=== PATIENT | female | born 1970 | race Hispanic/Latino ===

== ENCOUNTER 2016-12-13 13:40 | Emergency (ER) | payer OTHER ==
[~2016-12-13] VITALS: Ht 154.9 cm; Wt 81.8 kg
[~2016-12-13 13:40] MED LIST: ACET325T51 PO; ALBU8.5H2 INHALATION; CELE200C PO; CETI10CA PO; CIPR-198 PO; CITA20TA11 PO; FLUT12AE8 IH; GABA-502 PO; MONT10TA20 PO; PANT20T PO; SUCR1ORA2 PO
[2016-12-13 13:48] VITALS: BP 131/84; PULSE 70; RESP 16; O2SAT 97
--- NOTE | 2016-12-13 14:07 | ED.REPORT ---
HPI-Chest Pain 40 and Over Date of Service Dec 13, 2016 ED Provider: Reynaldo Berger MD Pt is a 46 y/o female w/ a hx of PFO, HTN, presenting to the ED by recommendation of her locate technician c/o intermittent CP onset today. This morning , the patient experienced an episode of intense chest pain lasting 2 minutes. Later at 10:45 she experienced another episode of chest pain lasting less than 2 minutes which was minimal in severity. Her pain is non-radiating. Pt denies any other symptoms or hx of DVT, PE, estrogen therapy, recent surgery, hemoptysis, lower extremity edema or pain. She went to her locate technician's office (Dr. Bautista) today to discuss her chest pain and was recommended to come to the ED. [employer] Line Core Feeder: Michele Nursing Notes Stated Complaint: CHEST PRESSURE,FROM URGENT CARE Chief Complaint: Chest Pain Nursing Notes Reviewed: Yes Allergies: Coded Allergies: hydrocodone (Verified Allergy, Severe, N/V, 12/13/16) hydrocortisone (Verified Allergy, Severe, HEART RACE, 12/13/16) metoprolol (Unverified Adverse Reaction, Severe, altered heart rate, ) oxycodone (Unverified Adverse Reaction, Severe, dyspnea, 12/13/16) Uncoded Allergies: horacio (Allergy, Unknown, unknown, 05/22/15) Scheduled Albuterol HFA (Proair HFA) 8.5 Gm Hfa.aer.ad 2 PUFFS INHALATION Q4H Celecoxib (Celebrex) 200 Mg Capsule 200 MG PO BID Cetirizine HCl (Zyrtec) 10 Mg Capsule 10 MG PO HS Ciprofloxacin (Ciprofloxacin) 500 Mg Tablet 500 MG PO BID Citalopram (Citalopram) 20 Mg Tablet 20 MG PO DAILY Fluticasone Propionate (Flovent HFA 110 mcg) 12 Gm Aer.w.adap 2 PUFFS IH BID Gabapentin (Gabapentin) 300 Mg Capsule 300 MG PO HS Montelukast (Singulair) 10 Mg Tablet 10 MG PO HS Pantoprazole DR (Protonix) 20 Mg Tablet 20 MG PO BID Sucralfate Susp (Carafate Susp) 1 Gm/10 Ml Oral.susp 1 GM PO QID Scheduled PRN Acetaminophen (Acetaminophen) 325 Mg Tablet 325 MG PO Q4H PRN PRN For Pain General Time Seen by MD: 14:50 Chief Complaint Chest pain Hx Obtained From: Patient Arrived By: Walk-in Sudden in Onset?: Yes Onset Occurred: 1 - 4 hours ago Symptom Duration: Intermittent Location: : Substernal Quality: Painful Severity: Current: No pain currently Severity: Maximum: Moderate Risk Factors PERC Rule PERC Result: PERC rule satisfied Past Medical History Past Medical History PFO (patent foramen ovale) Asthma Depression Hypothyroid Hx of migraines Hypertension GERD Anxiety Past Surgical History Reports: Hysterectomy Smoking History Never Smoker Social History Alcohol Use: Denies alcohol use Drug Use: Denies drug use Other Social History: Good social support, Ambulatory Status Independent Review of Systems Constitutional: Denies: Chills, Fever Respiratory: Denies: Non-productive cough, Shortness of breath Cardiovascular: Reports: Chest pain GI: Denies: Abdominal pain, Nausea, Vomiting Neurologic: Denies: Syncope Complete sys rev & neg: except as marked. Physical Exam Initial Vital Signs Vital Signs (First) Date Time Temp Pulse Resp B/P Pulse Ox O2 Delivery O2 Flow Rate FiO2 12/13/16 13:48 36.9 70 16 131/84 97 Room Air Initial VS: Reviewed, Vital signs normal Head / Eyes: Atraumatic, Normocephalic ENT: Mucous membranes moist Neck: Supple, Non-tender, Full range of motion Extremities: Vascular intact, Neuro intact, No swelling, No tenderness Skin: Warm, Dry, No cyanosis Neurologic: Alert, Oriented, Nonfocal Psychiatric: Mood/affect normal, Behavior normal, Normal thought content General/Constitutional: Awake, Alert, No acute distress, Well appearing, Cooperative, Not toxic appearing Appearance / Presentation: Positive: Obese Respiratory / Chest: Breath sounds NL, Breath sounds = bilat, No respiratory distress, No rales, No rhonchi, No wheezing, No stridor Cardiovascular: Heart rate NL, Regular rhythm, Heart sounds NL, No murmurs Abdomen: Atraumatic, Soft, Non-tender, No guarding, No rebound Interpretation & Diagnostics Lab Results Interpretation Result Diagram: 12/13/16 1448 12/13/16 1448 Test 12/13/16 14:48 White Blood Count 9.3th/mm3 (3.8-10.1) Red Blood Count 4.96mil/mm3 (3.90-5.20) Hemoglobin 14.8g/dL (12.0-15.6) Hematocrit 43.4% (35.0-46.0) Mean Corpuscular Volume 87.5fL (81-100) Mean Corpuscular Hemoglobin 29.8pg (27.0-35.0) Mean Corpuscular Hemoglobin Concent 34.1% (32.0-37.0) Red Cell Distribution Width 12.4% (12.3-15.4) Platelet Count 351bil/L (150-400) Neutrophils (%) (Auto) 61.8% (40-74) Lymphocytes (%) (Auto) 27.3% (14-46) Monocytes (%) (Auto) 8.9% (4-12) Eosinophils (%) (Auto) 1.2% (0-5) Basophils (%) (Auto) 0.5% (0-3) Sodium Level 137mEq/L (134-144) Potassium Level 4.0mEq/L (3.5-5.2) Chloride Level 100mEq/L (97-108) Carbon Dioxide Level 23mmol/L (18-29) Blood Urea Nitrogen 10mg/dL (6-24) Creatinine 0.49mg/dL (0.57-1.00) Estimat Glomerular Filtration Rate 194mL/min (>59) Glucose Level 102mg/dL (60-99) Calcium Level 9.2mg/dL (8.5-10.1) Magnesium Level 2.1mg/dL (1.6-2.6) Total Bilirubin 0.2mg/dL (0.0-1.2) Aspartate Amino Transf (AST/SGOT) 16U/L (0-50) Alanine Aminotransferase (ALT/SGPT) 15U/L (0-32) Alkaline Phosphatase 91U/L (25-150) Troponin T < 0.010ug/L (0.0-0.011) Total Protein 7.6g/dL (6.4-8.4) Albumin 4.3g/dL (3.4-5.0) ECG Interpretation Time: 15:08 Interpreted by: ED physician Normal ECG Interpretation: Normal ECG w/ rate of... (63), Normal rate, Normal sinus rhythm, No acute ischemic changes, Normal QRS, Normal axis, Normal intervals, Adequate tracing X-Ray Chest Interpretation Chest Xray Interpretation: IMPRESSION: 1. No acute cardiopulmonary disease. Dictated by: Rickey Rob M.D. on 12/13/2016 at 14:31 Approved by: Rickey Rob M.D. on 12/13/2016 at 14:33 View: Portable, AP & lat Interpretation / Wet Read by: Interpret - Radiologist Re-Eval/Medical Decision Med Decision/Clinical Course Overall low risk for acute coronary syndrome, for PE. Will be discharged. Return and follow-up precautions given Time of Eval: 16:55 Re-Evaluation/Progress Note: Pt rechecked. Informed pt of plan for discharge. Pt understands and agrees with plan for discharge. F/U instructions and RTER warnings given. All questions addressed. Consultation : Referral / Consult Name: Ilda Saucedo MD Consulted With: Cardiology Call Returned at: 16:54 Apartment Leasing Manager: Agrees with eval, Agrees with plan Note: Interprets echo over phone as: LV function normal No wall motion abnormality LV EF 55-60% No effusion Agrees with plan for outpatient f/u. Counseled Regarding: Diagnosis, Lab results, Need for follow-up, When/why to return to ED Discharge & Departure Primary Impression: Chest pain Chest pain type: unspecified Qualified Code: R07.9 - Chest pain, unspecified Disposition: Home Discharge Condition All VS Reviewed: Yes Condition: Stable Patient Instructions: Chest Pain (ED) Additional Instructions: The cause of your chest pain is uncertain but is not immanently dangerous. Echocardiogram (ultrasound of the heart), EKG, chest x-ray, and labs (including markers for heart damage) were all reassuring. Take Tylenol as needed for pain. You can take 650 mg 4x per day. Take Aspirin daily. Call Dr. Bautista tomorrow morning to schedule a follow-up appointment. A stress test may be considered at that time. Return to the emergency department for persistent or increased chest pain, shortness of breath, persistent vomiting, fever, or for other concerning symptoms. Referrals: OTHER,PHYSICIAN (PCP) Rodriguez Bautista MD Scribe Attestation Portions of this note were transcribed by Onesimo Streeter. I, Dr. Berger, personally performed the history, physical exam and medical decision-making; I reviewed and confirmed the accuracy of the information in the transcribed note. copies to: Rodriguez Bautista MD, Timothy S DO Dec 13, 2016 14:07 Philly Delarosa Dec 13, 2016 14:[address] Dec 13, 2016 14:56
--- NOTE | 2016-12-13 14:35 | DRSVH ---
PROCEDURE: X-RAY CHEST, TWO VIEWS ([id number]) INDICATIONS: CHEST PAIN TECHNIQUE: 2 views of the chest were acquired. COMPARISON: [facility], , CHEST 1VW (PORTABLE), 08/27/2010, 15:17. FINDINGS: Surgical changes and devices: None. Lungs and pleura: No pleural effusions or pneumothorax. Lungs are clear. Mediastinum: Mediastinal contours are normal. Heart size is normal. Bones and chest wall: No suspicious bony abnormalities. Soft tissues appear unremarkable. IMPRESSION: 1. No acute cardiopulmonary disease. Dictated by: Rickey Rob M.D. on 12/13/2016 at 14:31 Approved by: Rickey Rob M.D. on 12/13/2016 at 14:33
[2016-12-13 14:51] VITALS: BP 118/65; PULSE 67; RESP 18; O2SAT 98
[2016-12-13 14:56] LABS: BASOPHILS % (AUTO) 0.5 % (0-3); EOSINOPHILS % (AUTO) 1.2 % (0-5); MONOCYTES % (AUTO) 8.9 % (4-12); Mean Corpuscular Hemoglobin 29.8 pg (27.0-35.0); Mean Corpuscular Volume 87.5 fL (81-100); NEUTROPHILS % (AUTO) 61.8 % (40-74); Platelet Count 351 bil/L (150-400)
[2016-12-13 15:18] LABS: TROPONIN T < 0.010 ug/L (0.0-0.011)
[2016-12-13 15:29] LABS: Magnesium 2.1 mg/dL (1.6-2.6)
[2016-12-13 17:14] VITALS: BP 111/56; PULSE 66; RESP 16; O2SAT 100
== END 2016-12-13 17:15 | disposition home or self-care (01) ==
LOC: SED 13:40
DX: R07.89 Other chest pain (principal); Q21.1 Atrial septal defect; I10 Essential (primary) hypertension; J45.909 Unspecified asthma, uncomplicated; E03.9 Hypothyroidism, unspecified; K21.9 Gastro-esophageal reflux disease without esophagitis; Z88.5 Allergy status to narcotic agent; Z88.8 Allergy status to other drugs, medicaments and biological substances
CPT/HCPCS: 36415; 71020; 80053; 82948; 83735; 84484; 85025; 93005; 99285; C8924; Q9957